=== PATIENT | female | born 1940 | race Asian ===

== ENCOUNTER 2016-12-02 11:23 | Inpatient (IN) | payer OTHER ==
[~2016-12-02] VITALS: Ht 152.4 cm; Wt 53.6 kg
[2016-12-02 13:31] LABS: BASOPHILS # (AUTO) 0.07 K/uL (0.00-0.20); EOSINOPHILS # (AUTO) 0.09 K/uL (0.00-0.70); EOSINOPHILS % (AUTO) 1.18 % (1.0-6.0); HEMATOCRIT 42.8 % (36-46); HEMOGLOBIN 13.6 g/dL (12.0-16.0); LYMPHOCYTES # (AUTO) 1.9 K/uL (1.0-4.8); LYMPHOCYTES % (AUTO) 26.6 % (22.0-44.0); MEAN CORPUSCULAR HEMOGLOBIN 26.6 pg (26.0-34.0); MEAN CORPUSCULAR HGB CONC 31.9 G/dL (31.0-37.0); MEAN CORPUSCULAR VOLUME 83 fL (80-100); MONOCYTES # (AUTO) 0.5 K/uL (0.1-1.0); MONOCYTES % (AUTO) 6.2 % (2.0-9.0); NEUTROPHILS # (AUTO) 4.7 K/uL (1.8-7.7); PLATELET COUNT (AUTO) 212 K/uL (150-450); RED BLOOD CELL COUNT(AUTO) 5.14 MIL/uL (4.00-5.20); RED CELL DISTRIBUTION WIDTH 14.4 % (11.5-14.5); WHITE BLOOD COUNT (AUTO) 7.3 K/uL (4.5-11.0)
[2016-12-02 13:40] LABS: CALCIUM, TOTAL 9.5 mg/dL (8.8-10.5); CREATININE 1.24 mg/dL (0.60-1.30); POTASSIUM 3.5 mmol/L (3.5-5.1)
[2016-12-02 13:45] LABS: ALBUMIN 4.2 g/dL (3.4-5.0); BILIRUBIN,TOTAL 0.6 mg/dL (0.1-1.0); TOTAL PROTEIN, SERUM 8.5 g/dL (6.4-8.2)
[2016-12-02] MEDS ORDERED: SODIUM CHLORIDE 0.9% 100 ML ONE (14:16)
[2016-12-02] MEDS ORDERED: IOVERSOL 350 MG/ML 100 ML VIAL ONE (14:16)
[2016-12-02 14:28] LABS: APPEARANCE,URINE CLEAR (CLEAR); GLUCOSE, URINE (UA) NEGATIVE (NEGATIVE); KETONES,URINE NEGATIVE (NEGATIVE); LEUKOCYTE ESTERASE ,URINE NEGATIVE (NEGATIVE); OCCULT BLOOD,URINE NEGATIVE (NEGATIVE); PROTEIN,URINE NEGATIVE (NEGATIVE)
[2016-12-02 14:36] LABS: RBC,URINE None Seen /HPF (0-2); SQUAMOUS EPITHELIAL CELL,UR Few /LPF (None Seen); WBC,URINE 0-2 /HPF (0-5)
[2016-12-02] MEDS ORDERED: ALBUTEROL SULFATE 2.5 MG/0.5 ML NEB SOLUTION NEB PRN (17:00)
[2016-12-02] MEDS ORDERED: GuaiFENesin/D-METHORPHAN/PHENYLEPH 5 ML LIQUID ORAL.SYG PO PRN (17:00)
[2016-12-02] MEDS ORDERED: ONDANSETRON HCL 4 MG/2 ML VIAL IVP PRN ×2 (17:00→17:45)
[2016-12-02] MEDS ORDERED: ACETAMINOPHEN 325 MG TABLET PO PRN ×2 (17:00→17:45)
[2016-12-02] MEDS ORDERED: MAGNESIUM HYDROXIDE SUSPENSION 30 ML UDCUP PO PRN (17:00)
[2016-12-02] MEDS: AZITHROMYCIN 500 MG/NS 250 ML IV SCH (17:08)
[2016-12-02] MEDS ORDERED: PNEUMOCOCCAL VACCINE POLYVALENT 0.5 ML VIAL [PPSV23] IM ONE (18:45)
[2016-12-02 18:56] VITALS: BP 112/67
[2016-12-02 20:16] VITALS: BP 139/79
[2016-12-02] MEDS: DOCUSATE SODIUM 100 MG CAPSULE PO SCH (20:41)
[2016-12-03 00:34] VITALS: BP 132/76
[2016-12-03 07:10] VITALS: BP 128/77
[2016-12-03] MEDS: PANTOPRAZOLE SODIUM 40 MG DR TABLET PO SCH (08:57)
[2016-12-03] MEDS: DOCUSATE SODIUM 100 MG CAPSULE PO SCH ×2 (08:58→21:17)
[2016-12-03 11:20] VITALS: BP 124/79
[2016-12-03 16:28] VITALS: BP 130/75
[2016-12-03] MEDS: AZITHROMYCIN 500 MG/NS 250 ML IV SCH (17:24)
[2016-12-03] MEDS ORDERED: SODIUM CHLORIDE 0.9% 500 ML IV ONE (17:27)
[2016-12-03 19:50] VITALS: BP 134/80
[2016-12-03 23:53] VITALS: BP 127/64
[2016-12-04 05:24] VITALS: BP 129/74
[2016-12-04 07:15] VITALS: BP 125/78
[2016-12-04] MEDS: PANTOPRAZOLE SODIUM 40 MG DR TABLET PO SCH (08:52)
[2016-12-04] MEDS: DOCUSATE SODIUM 100 MG CAPSULE PO SCH ×2 (08:52→20:09)
[2016-12-04 11:10] VITALS: BP 131/79
[2016-12-04 15:47] VITALS: BP 133/86
[2016-12-04] MEDS: AZITHROMYCIN 500 MG/NS 250 ML IV SCH (17:15)
[2016-12-04 19:47] VITALS: BP 125/76
[2016-12-05] VITALS (7 sets, daily range): BP systolic 119–144; BP diastolic 69–92
[2016-12-05] MEDS: DOCUSATE SODIUM 100 MG CAPSULE PO SCH ×2 (08:14→20:08)
[2016-12-05] MEDS: PANTOPRAZOLE SODIUM 40 MG DR TABLET PO SCH (08:14)
[2016-12-05] MEDS: AZITHROMYCIN 500 MG/NS 250 ML IV SCH (17:28)
[2016-12-06 05:10] VITALS: BP 140/79
[2016-12-06 07:58] VITALS: BP 133/82
[2016-12-06] MEDS: DOCUSATE SODIUM 100 MG CAPSULE PO SCH (08:15)
[2016-12-06] MEDS: PANTOPRAZOLE SODIUM 40 MG DR TABLET PO SCH (08:15)
[2016-12-06 11:57] VITALS: BP 103/55
[2016-12-06] MEDS ORDERED: AZIT250T6 PO (13:30)
[2016-12-06] MEDS ORDERED: GUAIF10 PO (13:30)
== END 2016-12-06 14:30 | disposition home or self-care (01) | DRG 139 ==
LOC: EMS 11:25 → 6N 17:20
PROVIDERS: ADMIT Internal Medicine; ATTEND Internal Medicine
PROC: 3E0234Z Introduction of Serum, Toxoid and Vaccine into Muscle, Percutaneous Approach (ICD-10-PCS; principal; 2016-12-02)
DX: J18.9 Pneumonia, unspecified organism (principal); J47.0 Bronchiectasis with acute lower respiratory infection; J84.10 Pulmonary fibrosis, unspecified; R04.2 Hemoptysis; A31.9 Mycobacterial infection, unspecified; I10 Essential (primary) hypertension; R63.4 Abnormal weight loss; R59.0 Localized enlarged lymph nodes; Z68.23 Body mass index [BMI] 23.0-23.9, adult; Z82.49 Family history of ischemic heart disease and other diseases of the circulatory system
CPT/HCPCS: 71020; 71260; 83605; 87015; 87040; 93005; 99285; J0456; J7040; J7050